=== PATIENT | male | born 1945 | race Caucasian/White ===

== ENCOUNTER 2019-01-10 11:10 | Emergency (ER) | payer MEDICARE, OTHER ==
[2019-01-10] MEDS ORDERED: LIDOCAINE 1%/EPINEPHRINE INJ 20 ML VIAL INJ ONE (11:48)
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
[2019-01-10 15:07] VITALS: BP 110/70
== END 2019-01-10 15:06 | disposition home or self-care (01) ==
LOC: ER 11:10
DX: S01.81XA Laceration without foreign body of other part of head, initial encounter (principal); S01.21XA Laceration without foreign body of nose, initial encounter; S80.212A Abrasion, left knee, initial encounter; T14.8XXA Other injury of unspecified body region, initial encounter; M54.2 Cervicalgia; M79.641 Pain in right hand; M79.89 Other specified soft tissue disorders; R55 Syncope and collapse; V11.9XXA Unspecified pedal cyclist injured in collision with other pedal cycle in traffic accident, initial encounter; Y93.55 Activity, bike riding
CPT/HCPCS: 73130; 70450; 72125; 12013; J3490; 99284